=== PATIENT | female | born 1995 | race Caucasian/White ===

== ENCOUNTER → 2018-08-14 20:56 | Outpatient (CLI) | payer MEDICAID, BC, SELFPAY ==
[2018-08-19 14:43] LABS: HPV Reflexed? NOT INDICATED
--- OUTSIDE RECORDS SUMMARY | 2018-10-09 17:08 | XMS RPT_ITS ---
:1995 Author Organization OHIP Care Team Providers Name Role Phone PHYSICIAN, NONE Primary Care Unavailable ДМИТРИЙ TAM CNP Attending Unavailable SELENA BOB, DR. ERIC Attending Unavailable PHYSICIAN, NONE Primary Care Unavailable Jeaneth Walters Attending Unavailable Primay Care Physicia, No Primary Care Unavailable Jeaneth Walters Referring Unavailable AZIZA CABALLERO Attending Unavailable UNKNOWN, PROVIDER Attending Unavailable Cas Gonzalez Attending Unavailable Stk Cnty, Emergency Physicians Attending Unavailable PROBLEMS PROBLEMS DATE TYPE CONDITION / CODE ATTENDING STATUS SOURCE 08/15/2018 Unknown N39.0 - Urinary Selena, Active Mina tract infection, Jeaneth Community site not Hospital specified / Repository N39.0(ICD-10) 08/15/2018 Unknown Z12.4 - Encounter Bertha Walters for screening for [facility] malignant Hospital neoplasm of Repository cervix / Z12.4(ICD-10) 08/04/2018 Unknown Unspecified AZIZA CABALLERO [facility] sprain of right [facility] thumb, initial Repository encounter / S63.601A(ICD-10) 08/04/2018 Unknown Abrasion of right FEDERICOAZIZA SHARMA [facility] thumb, initial [facility] Hospitals encounter / Repository S60.311A(ICD-10) 08/04/2018 Unknown Caught, crush, FEDERICO, [facility] jammed, or [facility] pinched betw Repository moving objects, init / W23.0XXA(ICD-10) 08/04/2018 Active Pain in right FEDERICO, [facility] finger(s) / [facility] Hospitals M79.644(ICD-10) Repository 09/18/2017 Admitting Unknown / Unknown Active [facility] Medical diagnosis UNK(Unknown) [facility] Repository PROCEDURES PROCEDURES No Procedure Records FoundRESULTS RESULTS US BREAST RIGHT Observed: 08/19/2018 Status: F Source: [facility] 8:20 AM FOUNDATION REPOSITORY ORIGINAL FROM: [facility] [address] [place] [id number] PROCEDURE FOR: HARSH HAUSER [address] [place] [address] Home: PID#: [id number] Exam#: [id number] : 1995 Age: 23 TO: JEANETH WALTERS MD [address] [place] [id number] #[id number] LIMITED ULTRASOUND OF RIGHT BREAST: 08/19/2018 CLINICAL: PALPABLE LUMP RIGHT BREAST. No prior exams were available for comparison. Real-time ultrasound of the right breast upper inner quadrant was performed. There is no sonographic abnormality to correspond to a reported palpable lesion. Dense tissue is seen in the area of palpable concern. IMPRESSION: BENIGN No significant abnormality. Clinical correlation advised. There is no sonographic evidence of malignancy. I have personally reviewed the images of the examination and agree with the findings and interpretation. MITA MAGDALENO M.D. cm,da/:08/19/2018 11:16:07 Primer Inserting Machine Adjuster(s): DESIRAE BLAIR RT,[facility], [facility] letter sent: Normal BI-RADS 1&2 Ultrasound BI-RADS: 2 Benign Observed: 08/14/2018 Status: F Source: [place] CULTURE, URINE 3:15 PM [facility] REPOSITORY Urine Culture ORGANISM 1: Mixed Gram Positive Organisms [place] Count 1000-10,000 MIX CULTURE Mixed contaminants. Submit a new specimen if indicated. Performed By: #### M100.0650 #### [facility] Verma. 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 of containers..01 ThinPrep Vial TYPE CODE TESTS RESULT OUT OF RANGE REFERENCE UNITS LAB L7400.0800 . Normal DIAGN Comment Result Comment: NEGATIVE FOR INTRAEPITHELIAL LESION AND MALIGNANCY. LAB L7400.0900 . Normal ADEQ Comment Result Comment: Satisfactory for evaluation. Endocervical and/or squamous metaplastic cells (endocervical component) are present. LAB L7400.1400 . Normal PERFORM Comment Result Comment: Maite Milligan, Dynamite Shooter (ASCP) LAB L7400.2575 . Normal TEST METHOD Comment Result Comment: This liquid based ThinPrep(R) pap test was screened with the use of an image guided system. LAB L7400.2600 . Normal . COMM LAB L7400.2700 . Normal PAPSMR Comment Result Comment: The Pap smear is a screening test designed to aid in the detection of premalignant and malignant conditions of the uterine cervix. It is not a diagnostic procedure and should not be used as the sole means of detecting cervical cancer. Both false-positive and false-negative reports do occur. LAB L7400.2800 . Normal HPV RFLX Comment Result Comment: The HPV DNA reflex criteria were not met with this specimen result therefore, no HPV testing was performed. Performed at: - [facility]Wil[place], [place] [id number] Beauty Culturist: Kaylen Rollins MD, Phone: [phone] Performed By: #### L7400.0350 #### [facility] (refer to report for specific site) refer to report for address and phone number THUMB, MIN 2 VIEWS Observed: 08/04/2018 Status: F Source: [place] 11:02 AM [facility] REPOSITORY Patient Name: HARSH HAUSER STUDY: BN THUMB, MIN 2 VIEWS; 08/04/2018 11:02 am INDICATION: Signs/Symptoms: Right thumb pain after shutting it in car door. COMPARISON: None. ACCESSION NUMBER(S): [id number] ORDERING CLINICIAN: AZIZA CABALLERO FINDINGS: Three views of the right thumb. Normal bone mineralization. No visible acute fractures or dislocations. The joint spaces are maintained. No periosteal reaction or cortical erosive changes. The soft tissues appear unremarkable. IMPRESSION: No visible acute fractures or dislocations. Electronically signed by: JUSTINE ZAIDI MD PROVIDER NOTE - ED Observed: 08/04/2018 Status: COMPLETED Source: [place] [id number] 10:50 AM [facility] REPOSITORY Provider Note - ED v2: Chart Review: HISTORY OF PRESENTING ILLNESS HARSH is a 23 year old Female and was seen by me at 04-Aug-2018 10:27 for a chief complaint of hand pain/injury . Other complaints include: R THUMB CLOSED IN CAR DOOR(1). Triage Information: Most recent Vital Sign Value Date Temp (F): 98 08-04-2018 10:14 Temp (C): 36.6 08-04-2018 10:14 Heart Rate (beats/min): 70 08-04-2018 10:14 Respirations (breaths/min): 16 08-04-2018 10:14 SpO2 (%): 100 08-04-2018 10:14 BP Systolic (mm Hg): 131 08-04-2018 10:14 BP Diastolic (mm Hg): 61 08-04-2018 10:14 PAST MEDICAL HISTORY ATTESTATION: I have reviewed and confirmed nurse's/medic's notes for patient's medications, allergies, medical history, and surgical history ALLERGIES/INTOLERANCES: Allergy Allergen: penicillin Type: Drug Reaction: Hives/Urticaria Allergen: Duricef Type: Drug Reaction: Hives/Urticaria Allergen: Macrobid Type: Drug Reaction: Hives/Urticaria Allergen: Pyridium Type: Drug Reaction: Hives/Urticaria Allergen: sulfa drugs Type: Drug Category Reaction: Hives/Urticaria HEALTH HISTORY: No documented data. OUTPATIENT MEDICATIONS: Home Medications Review Status for Reconciliation: N/A Med Status: N/A No documented data. SIGNIFICANT EVENTS: Past Medical History Description:DENIES Past Surgical History Description:C SECTION VISUAL DISPLAY ASSOCIATE: Is : no(1) Is : no(1) RESULTS/VITAL SIGNS RESULTS: Radiology Results: Impression: No visible acute fractures or dislocations. Xray Finger(s) Min 2 View [Aug 04 2018 11:49AM] Impression: Xray Finger(s) Min 2 View [Aug 04 2018 10:51AM] Impression: Xray Finger(s) Min 2 View [Aug 04 2018 10:50AM] VITAL SIGNS: T PRBP SpO2O2(LPM) %FiO2 Method 04-Aug-2018 10:14:[id number]/61 100 MEDICAL DECISION MAKING/ED COURSE MDM/ED COURSE: HPI: 23-year-old female with no past medical history presenting with thumb pain since just prior to arrival. Patient shut her right thumb in the car door. Now she is complaining of pain on the distal part of the thumb through the nail. No other injuries. She has not taken anything for pain. Patient is right-handed. Tetanus is up to date. PMH: Per history of present illness PSH: MEDICATIONS: Per nurse's note. ROS: A complete 14 point review of systems was done, and was otherwise negative. ALLERGIES: See nurse's note. SOCIAL HISTORY:Tobacco -, etoh -, illicit drugs - FAMILY HISTORY: Noncontributory to current patient condition. VITALS: Per nurse's note PHYSICAL EXAM: Appearance: Alert, oriented , cooperative, in no acute distress. Well nourished & well hydrated. Eyes: PERRLA, Conjunctiva pink with no redness or exudates. No scleral icterus. ENT: Nares patent, mucus membranes moist. Pharynx pink, uvula midline. Neck: Supple, without meningismus. Trachea at midline. No lymphadenopathy. Pulmonary: Clear bilaterally with good chest wall excursion. No rales, rhonchi or wheezing. No accessory muscle use or stridor. Cardiac: Normal S1, S2 without murmur, rub, gallop or extrasystole. No JVD. No cyanosis, clubbing, or edema. Abdomen: Soft, nontender, active bowel sounds. No palpable organomegaly. No rebound or guarding. No CVA tenderness. Genitourinary: Exam deferred. Musculoskeletal: Decreased range of motion of right thumb. Pain over DIP joint. Superficial abrasion over thumb. no edema, or deformity. Pulses full and equal. Neurological: A&Ox3. Motor and sensation are grossly intact. No focal findings identified. Skin: Small abrasion on right thumb. Psychiatric: Appropriate mood and affect. ER Course and Decision-Making : Differential diagnosis includes, but is not limited to: Abrasion, contusion, fracture, dislocation Interpretation of Testing: X-ray right thumb: no acute fracture. Treatments initiated: Motrin. Patient placed in a finger splint. Reevaluation: Patient is feeling a little better with treatment. Plan and Disposition: Patient asked to follow-up with the primary physician in the next 2-3 days. Return if any worsening symptoms or concerns. They understand return precautions and discharge instructions. Patient and family/friend/caregiver available were in agreement with this plan. Impression: 1. Thumb sprain 2. Abrasion CLINICAL IMPRESSION Diagnosis/Annotation: ED Dx Name:Thumb sprain Code:S63.609A Name:Abrasion Code:T14.8XXA Dispostion: discharged Type: home ATTESTATION CRITICAL CARE TIME Is this a critically ill patient: no Electronic Signatures: Aziza Caballero) (Signed 04-Aug-2018 12:13) Authored: Provider Note - ED v2 Last Updated: 04-Aug-2018 12:13 by Aziza Caballero) References: 1. Data Referenced From Triage - ED 08/04/2018 10:14 AM TRIAGE - ED Observed: 08/04/2018 Status: UN Source: [place] 10:14 AM HOSPITALS REPOSITORY Quick Triage: The patient and/or guardian verbally acknowledges placement for services into the following (when Urgent Care Service hours are operating):urgent care services Are You no Are You Currently Breastfeedingno Pain: Pain Rating (0-10): Rest7 Chart Review: CHIEF COMPLAINT HARSH HAUSER is a Female patient with a chief complaint of hand pain/injury. Other Complaints: R THUMB CLOSED IN CAR DOOR Triage Date/Time: 04-Aug-2018 10:14 Pain Rating (0-10): Rest: 7 Vital Signs: Temperature: 98.0F ( 36.6C) Blood Pressure: 131/61 Mean: Heart Rate: 70 Respiratory Rate: 16 Pulse Oximetry: 100% Height: 4 feet 11.00 inches. 149.8 CM Weight: 125.0 pounds. Calculated 56.6 kg. (stated) Calculated BMI (kg/m2): 25.222 Calculated BSA (m2) 1.53 Cough lasting greater than 3 weeks: no Travel outside of [facility]: no VISUAL DISPLAY ASSOCIATE History: control Patient has suicidal thoughts: no Patient has homicidal thoughts: no JESSICA: 4 PAIN Pain Scale Used: VIJAY Past Medical History: Past Medical History Reviewedyes C SECTION: Past Surgical History, Active DENIES: Past Medical History, Active Electronic Signatures: Angelo Medina) (Signed 04-Aug-2018 10:44) Authored: Triage, Past Medical History Last Updated: 04-Aug-2018 10:44 by Angelo Medina) ED DOC Observed: 04/17/2018 Status: UNK Source: [facility] 3:29 PM [facility] REPOSITORY This is a preliminary report only, as the practitioner review and authentication has not occurred. ED DOC Observed: 04/17/2018 Status: UNK Source: [facility] 3:29 PM [facility] REPOSITORY PHYSICIAN ASSESSMENT RECORDS : FlexChartData Event Time: 04/17/2018 12:50 Status: Signed [facility] Harsh Hauser [[id number]] Attending Physician 1995 Chart (V2b) Chart created at 04/17/2018 12:43 by Andres Ruelas Chart closed at 04/17/2018 15:06 Entry in Emergency Department at 04/17/2018 11:38, departure at 04/17/2018 15:29 Patient Name: Harsh Hauser Record Number: [id number] Date: 04/17/2018 12:43 Entered Department at: 04/17/2018 11:38 Patient Seen at: 04/17/2018 12:35 PCP: *None,. Chief Complaint:R sided flank pain, nausea and vomiting today. Hx kidney stones Triage Note reviewed and Initial Vital Signs reviewed. Temperature: 98.4 F (36.9 C). Pulse: 98. Respiratory Rate: 18. Blood-pressure: 94/54. Oxygen Saturation: 99%. History of Present Illness: 22-Year-old presents here to the ED for evaluation of of flank pain. History of nephrolithiasis, remote history of bilateral ureteral stents, most recent CT scan in July 2017 showed bilateral punctate calcifications. Today she woke up feeling fine. She had the abrupt onset of right-sided renal colic with pain in her flank rating down to her right lower quadrant [facility] PATIENT NAME: HARSH HAUSER N [address] [facility] [address] MEDICAL REC #: [id number] [place] [address] EMERGENCY DEPARTMENT CHART EMERGENCY DEPARTMENT PHYSICIAN and groin area. She has had nausea but no vomiting. Denies fevers and chills. No antecedent urinary symptoms. No chest pain or dyspnea. No other acute complaints. Review of Systems. All other systems reviewed and negative.. Past History, Medications, Allergies, Social History and Family History reviewed in nurses note. Medications: Reviewed RN Note. BIOTIN DAILY Allergies: Reviewed RN Note Penicillin(Hives), Duricef(Hives), Sulfa(Hives), Penicillins(*N/A) Penicillin(Hives), Duricef(Hives), Sulfa(Hives), Penicillins(*N/A) Social History: Reviewed RN Note. Family History: Reviewed RN Note Physical Examination: General: Alert; Mildly uncomfortable but otherwise well-appearing HEENT: Normal ENT inspection. Head: Atraumatic. Eyes: PERRL; . Oropharynx / Throat: Moist mucous membranes. Neck: Supple Respiratory: No Resp Distress and Normal Breath Sounds Cardio-Vascular: RRR Abdomen: Non-tender and Soft; Vague non-localizable tenderness in the right lower quadrant without guarding or peritoneal findings. Back: No CVA tenderness Extremity: No edema and Normal Equal pulses Neurological: Alert, Oriented X3 and No Gross Weakness Skin: Warm and Dry Psychological: Mood/Affect Normal URINE , information as of 04/17/2018, 1:00 pm UR HCG QUAL: Neg; UR SPEC GRAV: 1.017 UA COMPLETE, information as of 04/17/2018, 1:00 pm + +---------+---------+---------+---------+-------- + [facility] PATIENT NAME: HARSH HAUSER N [address] [facility] [address] [place] MEDICAL REC #: [id number] [place] [address] EMERGENCY DEPARTMENT CHART EMERGENCY DEPARTMENT PHYSICIAN + +---------+---------+---------+---------+-------- + + +---------+---------+---------+---------+-------- + + +---------+---------+---------+---------+-------- + + +---------+---------+---------+---------+-------- + MUCUS: Trace; SQUAMOUS EPIS: 4 Epi/Hpf; UA BACTERIA: Trace /Hpf Medical Decision Making Patient was seen and examined. IV established. IV Toradol and IV Zofran administered. ED workup performed as detailed above. Urinalysis is unimpressive for infection. No significant hematuria. HCG was negative. I did review her CT scan. She has known bilateral punctate nephrolithiasis. Symptoms are consistent with renal colic. I did treat her as such. I have observed and reassessed her. She is feeling much better. She is comfortable. At this time I do think she is likely passing a punctate ureteral calculus. I do believe she is low risk for discharge home. I do not believe a repeat CT scan is in her best interest given her history of nephrolithiasis, classic symptoms renal colic and I will avoid a CT scan in efforts to minimize radiation exposure. She is comfortable with the plan. Additional Information: Old records reviewed (CT scan abdomen/pelvis from July 2017 showing bilateral renal punctate calcifications). Discussed Results, Diagnosis and Follow-Up with Patient. Prescription given. [facility] PATIENT NAME: HARSH HAUSER N [address] [facility] [address] [place] MEDICAL REC #: [id number] [place] [address] EMERGENCY DEPARTMENT CHART EMERGENCY DEPARTMENT PHYSICIAN Clinical Impression: 1. Acute renal colic, improved MSE completed. I was the primary ED attending.. : Discharge Report Event Time: 04/17/2018 15:03 ===DISCHARGE REPORT=== : GerhardChartData Event Time: 04/17/2018 12:50 : Discharge Report Event Time: 04/17/2018 15:03 Status: Draft Reasons to Return to the ER: You must return to the ER for any new, worsening or changing symptoms, or if you feel more ill or sick in any way. This is the most important thing to remember. Follow-up: The care you received in the ER was given on an emergency basis only, and it is often not possible to completely treat or diagnose a problem in a single ER visit. You must see your follow-up doctor for a recheck within a week unless you receive instructions with a different timeframe for follow-up. Please follow all your discharge instructions. Medications: Unless the ER doctor tells you differently, you should take all your regular medications and any new medications prescribed today. Because it is not possible for the ER doctor to review all of your medication side effects or interactions, you must review possible side effects and interactions with your pharmacist when you get your prescriptions filled. [facility] PATIENT NAME: HARSH HAUSER [address] [facility] [address] [place] MEDICAL REC #: [id number] [place] [address] EMERGENCY DEPARTMENT CHART EMERGENCY DEPARTMENT PHYSICIAN EKG and Radiology Results: A cell tender helper or radiologist will review any EKG or radiology results provided by the ER doctor. We will contact you if the results in the final EKG or radiology reports require a change in treatment. Culture Results: Cultures may have been ordered during your ER visit. We will contact you if the culture results require a change in treatment. Referrals: Most referrals to specialists come from the on-call list You should make your regular doctor aware of any referrals before you schedule the appointment so that they are aware and can make suggestions DIAGNOSIS: Flank pain, resolved, suspect passed kidney stone INSTRUCTIONS: Ibuprofen 400 mg 3 times a day as needed. Phenergan for nausea. Flomax as directed. Holbrook as needed. Kidney stones (called renal calculi) are rock-like pieces of material that can form anywhere in the urinary system, most often in the kidneys. The stones cause pain when they block the flow of urine. This usually happens in the tube (called a ureter) that connects the kidney to the bladder. Most kidney stones are small (less than 1/4 inch) and will pass on their own in several days. You will find them in your urine when you use your strainer. Even larger stones can sometimes be passed by themselves, but if a stone gets stuck it may need to be removed by a specialist called a urologist. Medication for pain and nausea is used to make you comfortable. While you are trying to pass your stone you should try and rest, drink plenty of fluids, and avoid alcohol. If you were given a strainer, you [facility] PATIENT NAME: HARSH HAUSER [address] [facility] [address] [place] MEDICAL REC #: [id number] [place] [address] EMERGENCY DEPARTMENT CHART EMERGENCY DEPARTMENT PHYSICIAN should strain your urine and keep any stone that you collect for your follow-up doctor. The stone will look like a small piece of sand or gravel. Ixwb-[id number] ibuprofen (if you are not ) may be used for pain. You should avoid aspirin unless you are taking this medication for another reason. You must use all of your regular medications plus all the medications that were given to you today UNLESS THE ER DOCTOR GIVES YOU OTHER INSTRUCTIONS, YOU MUST SEE YOUR FOLLOW-UP DOCTOR FOR RECHECK WITHIN 2 TO 3 DAYS YOU MUST RETURN TO THE ER RIGHT AWAY FOR ANY OF THE FOLLOWING:Increasing painFevers or chillsNew or increasing nausea or vomitingDecreasing urine flow MEDICATIONS We have given you these prescriptions that you must fill and start taking: Phenergan 25 mg tablet, count:20, Dose = 1, count:20, 6 hours, count:20 Flomax 0.4 mg capsule, count:5, Dose = 1, count:5, each bedtime, count:5,until kidney stone passes, count:5 Holbrook 5 mg-325 mg tablet, count:10, Dose = 1, count:10, 5 days, count:10, q4-6h, count:10, Number of Refills = 0, count:10 COMMENTS: Patient Satisfaction: Within the first few days after your visit, you will receive an email and/or phone call regarding your visit. We value your feedback, and would appreciate it if you would take the time to complete this short survey. If you receive a call, it will be between 6p and 8p. My signature below indicates that I have received and understand the oral instructions regarding my medical problem. I also acknowledge receipt of this written instruction sheet including a list of major [facility] PATIENT NAME: HARSH HAUSER [address] [facility] [address] [place] MEDICAL REC #: [id number] [place] [address] EMERGENCY DEPARTMENT CHART EMERGENCY DEPARTMENT PHYSICIAN tests and procedures ordered during my visit. I will arrange for follow-up care as indicated by these instructions and referrals. This signed original will be kept in my medical record. Your signature below indicates consent for Case Management to contact [facility] providers in an effort to meet your ongoing healthcare needs. This will allow forcontinuity of care once you leave the Emergency Department. This exchange of informationwill include, but not be limited to, disclosure of your patient information and possible release of records. 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 Hx kidney stones Arrival Date: 04/17/2018 11:38 Triage Date: 04/17/2018 11:50 Mode of Arrival: *Privately Owned Vehicle WC: N Language: Algerian [facility] PATIENT NAME: HARSH HAUSER [address] [facility] [address] MEDICAL REC #: [id number] [place] [address] EMERGENCY DEPARTMENT CHART EMERGENCY DEPARTMENT PHYSICIAN Transport: Ambulatory/Walk In BED A12 In: 04/17/2018 12:09:52 04/17/2018 12:09:52 [facility] A12 (Removed From) Out: 04/17/2018 15:29:15 04/17/2018 15:29:15 ARM PROVIDERS MD Andres Ruelas Provider Contact: 04/17/2018 12:35:57 TLS End: MAGGY GARCIA Provider Contact: 04/17/2018 13:08:43 ARM End: TRIAGE HISTORY ALLERGIES Allergic To: Penicillins - *N/A 04/17/2018 11:51 VDPA CURRENT MEDS Name: BIOTIN DAILY 04/17/2018 13:21 ARM ILLNESS Illness: Kidney stones 04/17/2018 11:51 VDPA PAST SURGERY HIST Surgery: 04/17/2018 11:51 VDPA Surgery: KIDNEY STONES 04/17/2018 11:51 VDPA PAST SOCIAL HIST Social History: Lives alone 04/17/2018 11:51 VDPA Social History: Smoker-None 04/17/2018 11:51 VDPA [facility] PATIENT NAME: HARSH HAUSER Joyce [address] [facility] [address] MEDICAL REC #: [id number] [place] [address] EMERGENCY DEPARTMENT CHART EMERGENCY DEPARTMENT PHYSICIAN Social History: Recreational Drugs - None 04/17/2018 11:51 VDPA Social History: Alcohol - Occasional- 04/17/2018 11:51 VDPA Social History: Have you traveled in the past month? Where DENIES 04/17/2018 11:51 VDPA NURSING ASSESSMENT ASSESSMENT NOTES 04/17/2018 13:23 PT C/O RIGHT LOWER ABDOMINAL PAIN AND RIGHT FLANK PAIN STARTING THIS MORNING. HX OF FREQUENT KIDNEY STONES. THE PT IS Aandamp;OX3. RESPIRATIONS EVEN AND EASY. SKIN WARM AND DRY. 04/17/2018 13:24 ARM TREATMENT 04/17/2018 13:22 Hourly Rounding - Rounding 04/17/2018 13:23 ARM Elimination/Toileting N Pain 8 Position Comfortable Y Safe Environment Y Fall Risk Change N 04/17/2018 13:22 Staff/ Patient Interaction - Introduced self and assessed patients needs. 04/17/2018 13:23 ARM 04/17/2018 13:22 Staff/ Patient Interaction - Side rails up X2 and call light placed within reach. 04/17/2018 13:23 ARM 04/17/2018 13:22 Primary DOC Guide - A. Patient History 04/17/2018 13:23 ARM Primary History Source Patient Buddy Exposure - Been exposed to or in contact with any bird or chicken in the last 30 days No [facility] PATIENT NAME: HARSH HAUSER N [address] [facility] 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 Fall Risk Assessment (Age andlt;65) 04/17/2018 13:23 ARM Fall Risk Score 1-2 Points = Low Risk. 3-4 Points = Moderate Risk. 5 or more points = High Risk. 0 Fall Score Greater andgt;= 3? No 04/17/2018 13:23 Primary DOC Guide - D. Psychosocial Assessment 04/17/2018 13:23 ARM Over the Last 2 weeks, how often have you had little interest or pleasure in doing things (0) Not at All Is Psychosocial Assessment Score 3 or more? If score is 3 or more please consult ED Navigator! No Total Psychosocial Assessment Score 0 Over the last 2 weeks, how often have you been feeling down, depressed or hopeless (0) Not at All 04/17/2018 13:23 Primary DOC Guide - E. Family Violence Assessment 04/17/2018 13:23 ARM Within the past year, has anyone ever pushed, shoved, slapped, choked, hit, punched or kicked you: No Within the past year, has anyone ever pressured or forced you to have sexual activities when you did not want to: No Is there a partner from a previous or current relationship that is making you feel unsafe now: No 04/17/2018 14:12 Hourly Rounding - Rounding 04/17/2018 14:13 ARM Elimination/Toileting N Pain 4 Position Comfortable Y Safe Environment Y Assessment Note PT STATES PAIN IS IMPROVED. RESTING QUIETLY IN BED. Fall Risk Change N 04/17/2018 14:40 Hourly Rounding - Rounding 04/17/2018 [facility] PATIENT NAME: HARSH HAUSER [address] [facility] [address] MEDICAL REC #: [id number] [place] [address] EMERGENCY DEPARTMENT CHART EMERGENCY DEPARTMENT PHYSICIAN 14:40 ARM Elimination/Toileting N Pain 0 Position Comfortable Y Safe Environment Y Fall Risk Change N 04/17/2018 15:22 Discharge - Ambulated with steady gait home 04/17/2018 15:22 ARM 04/17/2018 15:22 Discharge - Discharge 04/17/2018 15:22 ARM 04/17/2018 15:22 Discharge - Instructions reviewed with pt and verbalizes understanding 04/17/2018 15:22 ARM 04/17/2018 15:22 Discharge - Printed discharge instructions given to pt. 04/17/2018 15:22 ARM 04/17/2018 15:22 Education - Discharge Instructions reviewed and patient voices understanding. 04/17/2018 15:22 ARM 04/17/2018 15:22 Education - Disease process discussed. 04/17/2018 15:22 ARM 04/17/2018 15:22 Education - Pain Management Re-Assessed 04/17/2018 15:22 ARM 04/17/2018 15:22 Education - Purpose/Use Medication discussed with patient and family. 04/17/2018 15:22 ARM MEDICATIONS IV IV Fluid: B 04/17/2018 13:21 04/17/2018 13:22 ARM Line #: 1 Rate: ml/hr Location: antecubital fossa right Ndl Gauge: 20 # Attempts: 1 Notes: IV FLUSHES EASILY. NO REDNESS OR EDEMA AT SITE. [facility] PATIENT NAME: HARSH HAUSER [address] [facility] [address] MEDICAL REC #: [id number] [place] [address] EMERGENCY DEPARTMENT CHART EMERGENCY DEPARTMENT PHYSICIAN IV Fluid: S 04/17/2018 13:22 04/17/2018 14:20 ARM Line #: 1 Fluid: 0.9% NS 1000cc bag Rate: ml/hr Location: antecubital fossa right Ndl Gauge: 20 # Attempts: 1 Amt: 1000 IV Fluid: D 04/17/2018 14:20 04/17/2018 14:20 ARM Line #: 1 Fluid: 0.9% NS 1000cc bag Rate: ml/hr Location: antecubital fossa right Ndl Gauge: 20 # Attempts: 1 IV Fluid: E 04/17/2018 15:21 04/17/2018 15:21 ARM Line #: 1 Rate: ml/hr Location: antecubital fossa right Ndl Gauge: 20 # Attempts: 1 Notes: IV REMOVED TIP INTACT. NO REDNESS OR EDEMA AT SITE. BLEEDING CONTROLLED. DRESSING APPLLIED. I AND O VITALS VS-ROUTINE Time: 04/17/2018 11:50 B/P: 94/54 - Left Upper Arm - Sitting - Machine Pulse: 98 - Monitor Resp: 18 Sa02: 99 Room Air Temp: 98.40 F - Oral 04/17/2018 11:51 VDPA VS-Pain Time: 04/17/2018 11:50 Pain Level: 9 04/17/2018 11:51 VDPA VS-GCS Time: 04/17/2018 11:50 Visual: 4 Verbal: 5 Motor: 6 GCS Total: 15 04/17/2018 11:51 VDPA VS-HT/WT Time: 04/17/2018 11:50 Ht: 147.3 cm Stated Weight: 56.7 kg Stated 04/17/2018 11:51 VDPA VS-Visual Time: 04/17/2018 11:50 04/17/2018 11:51 VDPA VS-FHT Time: 04/17/2018 11:50 04/17/2018 11:51 VDPA VS-Notes Time: 04/17/2018 11:50 map 67 04/17/2018 11:51 VDPA VS-ROUTINE Time: 04/17/2018 14:39 B/P: 93/51 - Right Upper Arm - Lying - Machine Pulse: [facility] PATIENT NAME: HARSH HAUSER N [address] [facility] [address] MEDICAL REC #: [id number] [place] [address] EMERGENCY DEPARTMENT CHART EMERGENCY DEPARTMENT PHYSICIAN 84 - Monitor Resp: 16 Sa02: 99 Room Air 04/17/2018 14:40 ARM VS-Pain Time: 04/17/2018 14:39 Pain Level: 0 04/17/2018 14:40 ARM VS-GCS Time: 04/17/2018 14:39 Visual: 4 Verbal: 5 Motor: 6 GCS Total: 15 04/17/2018 14:40 ARM VS-HT/WT Time: 04/17/2018 14:39 04/17/2018 14:40 ARM VS-Visual Time: 04/17/2018 14:39 04/17/2018 14:40 ARM VS-FHT Time: 04/17/2018 14:39 04/17/2018 14:40 ARM VS-Notes Time: 04/17/2018 14:39 MAP 67 04/17/2018 14:40 ARM ORDERS Discharge patient 04/17/2018 15:06 N/A Ordered: 04/17/2018 15:02 By . Other Reviewed: 04/17/2018 15:06 By . Other (urine) 04/17/2018 13:31 N/A Ordered: 04/17/2018 12:42 By Andres Ruelas Completed Time: 04/17/2018 13:31 By Andres Ruelas Noted Time: 04/17/2018 13:21 ARM Results Time: 04/17/2018 13:31 UA ccms (cath if unable to void in 30 mins) 04/17/2018 13:41 N/A Ordered: 04/17/2018 12:42 By Andres Ruelas Completed Time: 04/17/2018 13:41 By Andres Ruelas Noted Time: 04/17/2018 13:21 ARM Question: Lab Urine Specimen Type Answer: Clean Catch Question: Also Culture, if indicated by UA results (Y or N) Answer: NO Results Time: 04/17/2018 13:41 IV NS bolus 1L over 30 min 04/17/2018 13:21 N/A Ordered: 04/17/2018 12:42 By Andres Ruelas Completed Time: 04/17/2018 13:21 By Andres Ruelas Noted Time: 04/17/2018 13:08 ARM [facility] PATIENT NAME: HARSH HAUSER Joyce [address] [facility] [address] MEDICAL REC #: [id number] [place] [address] EMERGENCY DEPARTMENT CHART EMERGENCY DEPARTMENT PHYSICIAN Toradol (IV)*(30mg/ml) DOSE: 15 mg IV 04/17/2018 13:21 N/A Ordered: 04/17/2018 12:42 By Andres Ruelas Completed Time: 04/17/2018 13:20 By Andres Ruelas Noted Time: 04/17/2018 13:08 ARM Zofran (IV)*(2mg/ml) DOSE: 4 mg IV 04/17/2018 13:21 N/A Ordered: 04/17/2018 12:42 By Andres Ruelas Completed Time: 04/17/2018 13:20 By Andres Ruelas Noted Time: 04/17/2018 13:08 ARM DISCHARGE Diagnosis: Flank pain, resolved, suspect passed kidney stone 04/17/2018 15:03 Disposition: Time: 04/17/2018 15:02 Discharge Time: 04/17/2018 15:29 Type: Discharge Condition: Stable for admission/discharge/transfer after emergency evaluation/treatment Category: *NOT APPLICABLE Referral: 04/17/2018 15:03 Admit Physician: . Other PRESCRIPTIONS Phenergan 25 mg tablet 04/17/2018 15:03 SI 6 hours nausea Dispense: 20 / Refills: Flomax 0.4 mg capsule 04/17/2018 15:03 SI each bedtime Additional Instructions: until kidney stone passes Dispense: 5 / Refills: Holbrook 5 mg-325 mg tablet 04/17/2018 15:03 SI q4-6h pain for 5 days Dispense: 10 / Refills: CHARGES [facility] PATIENT NAME: HARSH HAUSER N [address] [facility] [address] MEDICAL REC #: [id number] [place] [address] EMERGENCY DEPARTMENT CHART EMERGENCY DEPARTMENT PHYSICIAN 0.9% NS 1000cc bag QTY @ 1 04/17/2018 13:22 ARM Auto Generated Charge SIGNATURE Andres [facility] PATIENT NAME: HARSH HAUSER N [address] [facility] [address] MEDICAL REC #: [id number] [place] [address] EMERGENCY DEPARTMENT CHART EMERGENCY DEPARTMENT PHYSICIAN URINE Collected: 04/17/2018 Status: F Source: [facility] 1:00 PM [facility] REPOSITORY Order Comment: [place]: TYPE CODE TESTS RESULT OUT OF RANGE REFERENCE UNITS LAB L600.04514 NEGATIVE Normal UR NEGATIVE HCG QUAL LAB L600.23169 1.005-1.030 Normal UR 1.017 SPEC GRAV Result Comment: 0URINE HCG RESULT MAY BE FALSE NEGATIVE DUE TO LOW SPECIFIC GRAVITY. SUGGEST SERUM TEST. Performed By: #### L600.11471 #### [facility] [address] [place] [address] UA COMPLETE Collected: 04/17/2018 Status: F Source: [facility] 1:00 PM [facility] REPOSITORY Order Comment: [place]: M TYPE CODE TESTS RESULT OUT OF REFERENCE UNITS RANGE LAB L600.04005 UA COLOR Normal Yellow LAB L600.17173 CLEAR UA Normal APPEARANCE Hazy LAB L600.73310 1.005-1.030 UA SPEC Normal GRAV 1.017 LAB L600.27328 UA PH Normal 5.0 LAB L600.42687 UA GLUCOSE Normal NEG LAB L600.18232 UA KETONE Normal NEGATIVE LAB L600.55988 UA Normal BILIRUBIN NEGATIVE LAB L600.00556 UA Normal UROBILINOGEN NEG LAB L600.53965 NEGATIVE UA PROTEIN Normal NEGATIVE LAB L600.88300 NEGATIVE UA BLOOD Normal SMALL LAB L600.22874 NEGATIVE UA NITRITE Normal NEGATIVE LAB L600.62097 NEGATIVE UA LK Normal ESTERASE 25 LAB L600.82588 0-5 WBC/HPF UA WBC Normal 3 LAB L600.43323 0-3 RBC/HPF UA RBC Normal 2 LAB L600.22509 0-5 EPI/HPF SQUAMOUS Normal EPIS 4 LAB L600.73764 NONE /HPF UA BACTERIA Normal TRACE LAB L600.94444 MUCUS Normal TRACE Performed By: #### L600.41121 #### [facility] [address] [phone] ED DOC Observed: 03/18/2018 Status: UNK Source: [facility] 3:03 AM [facility] REPOSITORY This is a preliminary report only, as the practitioner review and authentication has not occurred. ED DOC Observed: 03/18/2018 Status: UNK Source: [facility] 3:03 AM [facility] REPOSITORY PHYSICIAN ASSESSMENT RECORDS : FlexChartData Event Time: 03/18/2018 00:20 Status: Signed [facility] Harsh Hauser [[id number]] Attending Physician 1995 Chart (V2b) Chart created at 03/18/2018 00:15 by Jany Reyez Chart closed at 03/18/2018 03:52 Entry in Emergency Department at 03/17/2018 21:49, departure at 03/18/2018 03:03 Patient Name: Harsh Hauser Record Number: [id number] Date: 03/18/2018 00:15 Entered Department at: 03/17/2018 21:49 Patient Seen at: 03/17/2018 23:56 Historian: Patient PCP: *None,. Chief Complaint:Abdominal Pain Temperature: 98.2 F (36.8 C). Pulse: 75. Respiratory Rate: 18. Blood-pressure: 102/57. Oxygen Saturation: 98%. History of Present Illness: Patient is a 22-year-old female presenting with pelvic pain. She states that she has a history of chronic back pain associated with kidney stones. She comes in today stating that yesterday she noticed pain in the suprapubic region. It has been constant since. She has associated dysuria and has noticed her urine has been cloudy. She states she has some chronic vaginal discharge and has not changed. She denies any vaginal bleeding. She has an IUD in place and is unsure of her last period. She has felt nauseous but has [facility] PATIENT NAME: HARSH HAUSER [address] [facility] [address] MEDICAL REC #: [id number] [place] [address] EMERGENCY DEPARTMENT CHART EMERGENCY DEPARTMENT PHYSICIAN not had any vomiting. She denies any diarrhea or constipation. Review of Systems. All other systems reviewed and negative.. Past History, Medications, Allergies, Social History and Family History reviewed in nurses note. Medications: Reviewed RN Note. None, PER PT 03/17/18, None, PER PT 03/17/18 Allergies: Reviewed RN Note Penicillin(Hives), Duricef(Hives), Sulfa(Hives), Penicillins(*N/A) Penicillin(Hives), Duricef(Hives), Sulfa(Hives), Penicillins(*N/A) Social History: Reviewed RN Note. Family History: Reviewed RN Note Physical Examination: General: Alert and Well Developed HEENT: Normal ENT inspection. Eyes: Lids Normal; . Neck: No Meningismus and Supple Respiratory: No Resp Distress and Normal Breath Sounds Cardio-Vascular: No rub and RRR Abdomen: Soft; tender without guarding or rebound suprapubic and left pelvic Extremity: No edema Neurological: Alert, Oriented X3 and No Gross Weakness Skin: No rash, No Petechiae, Warm and Dry Psychological: Mood/Affect Normal UA COMPLETE, information as of 03/18/2018, 0:05 am + +---------+---------+---------+---------+-------- + + +---------+---------+---------+---------+-------- + [facility] PATIENT NAME: HARSH HAUSER N [address] [facility] [address] MEDICAL REC #: [id number] [place] [address] EMERGENCY DEPARTMENT CHART EMERGENCY DEPARTMENT PHYSICIAN + +---------+---------+---------+---------+-------- + + +---------+---------+---------+---------+-------- + + +---------+---------+---------+---------+-------- + MUCUS: Trace; SQUAMOUS EPIS: 6 Epi/Hpf; UA BACTERIA: 1+ /Hpf URINE , information as of 03/18/2018, 0:05 am UR HCG QUAL: Neg; UR SPEC GRAV: 1.010 Imaging Study Obtained: TRANSVAGINAL Imaging Study Obtained: US TRANSVAGINAL, Status:Signed Report Available US TRANSVAGINAL Ordering Physician: Jany Reyez MD 03/18/2018 12:04 AM ULTRASOUND PELVIS TRANSVAGINAL IMAGING: Clinical Statement: Intermittent cramping for weeks; IUD Comparison: None FINDINGS: Transvaginal pelvic ultrasound was acquired. The uterus measures 9.0 x 2.9 x 4.3 cm and appears heterogeneous and an intrauterine device is present within the uterus at the mid uterine segment. No myometrial mass is shown. The endometrium measures 3 mm [facility] PATIENT NAME: HARSH HAUSER N [address] [facility] [address] MEDICAL REC #: [id number] [place] [address] EMERGENCY DEPARTMENT CHART EMERGENCY DEPARTMENT PHYSICIAN on transvaginal images. There is a small amount of fluid seen within the endocervical canal. The right and left ovaries measure 3.5 x 1.7 x 2.6 cm and 2.4 x 2.1 x 2.1 cm respectively. Doppler flow is present to both ovaries. No adnexal mass. There is free fluid seen within the cul-de-sac. IMPRESSION: No acute abnormalities. Nonspecific heterogeneous uterus. A copy of this report was faxed at the time of dictation. 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 IUD is in place. Urinalysis shows small amount of blood as well as some bacteria. I sent this for culture but given her suprapubic pain and dysuria, I will empirically treat her with Keflex. Shes instructed on Tylenol or Motrin as needed for pain. She is encouraged to follow with her VISUAL DISPLAY ASSOCIATE. Return if worsening. She is comfortable with this plan. Additional Information: Discussed Results, Diagnosis and Follow-Up with Patient. Clinical Impression: [facility] PATIENT NAME: HARSH HAUSER [address] MEDICAL REC #: [id number] [place] [address] EMERGENCY DEPARTMENT CHART EMERGENCY DEPARTMENT PHYSICIAN 1. Acute UTI Disposition: Discharged *Home. Condition: Good MSE completed. I was the primary ED attending.. : Discharge Report Event Time: 03/18/2018 02:14 ===DISCHARGE REPORT=== : FlexChartData Event Time: 03/18/2018 00:20 : Discharge Report Event Time: 03/18/2018 02:14 Status: Draft Reasons to Return to the ER: You must return to the ER for any new, worsening or changing symptoms, or if you feel more ill or sick in any way. This is the most important thing to remember. Follow-up: The care you received in the ER was given on an emergency basis only, and it is often not possible to completely treat or diagnose a problem in a single ER visit. You must see your follow-up doctor for a recheck within a week unless you receive instructions with a different timeframe for follow-up. Please follow all your discharge instructions. Medications: Unless the ER doctor tells you differently, you should take all your regular medications and any new medications prescribed today. Because it is not possible for the ER doctor to review all of your medication side effects or interactions, you must review possible side effects and interactions with your [facility] PATIENT NAME: HARSH HAUSER [address] [place] MEDICAL REC #: [id number] [place] [address] EMERGENCY DEPARTMENT CHART EMERGENCY DEPARTMENT PHYSICIAN pharmacist when you get your prescriptions filled. EKG and Radiology Results: A cell tender helper or radiologist will review any EKG or radiology results provided by the ER doctor. We will contact you if the results in the final EKG or radiology reports require a change in treatment. Culture Results: Cultures may have been ordered during your ER visit. We will contact you if the culture results require a change in treatment. Referrals: Most referrals to specialists come from the on-call list You should make your regular doctor aware of any referrals before you schedule the appointment so that they are aware and can make suggestions DIAGNOSIS: Acute UTI A urinary tract infection (or UTI) is the medical name for an infection of the bladder or kidney. Both of these infections are caused by bacteria. Bladder infections (also called cystitis) may cause pain with urination, blood in the urine, increased frequency of urination or increased urge to urinate. They may also cause low grade fevers (under 102.5 degrees) or pain and spasm of the bladder. Kidney infections (also called pyelonephritis) may cause severe pain in the flanks or back, as well as nausea, vomiting, muscle aches and high fevers. It is also not uncommon to have an infection that is a combination of bladder and kidney infections, with some symptoms of both. Antibiotics are used to treat urinary infections. The doctor may also use medications to help with the pain and nausea. While you are sick you should try and rest, drink plenty of fluids, and avoid alcohol. Zccp-rxk-hkvkkas ibuprofen (if you are not ) or acetaminophen may be used for aches, pains and [facility] PATIENT NAME: HARSH HAUSER [facility] [address] MEDICAL REC #: [id number] [place] [address] EMERGENCY DEPARTMENT CHART EMERGENCY DEPARTMENT PHYSICIAN fever. You should avoid aspirin unless you are taking this medication for another reason. You must use all of your regular medications plus all the medications that were given to you today. UNLESS THE ER DOCTOR GIVES YOU OTHER INSTRUCTIONS, YOU MUST SEE YOUR FOLLOW-UP DOCTOR FOR RECHECK WITHIN 2 TO 3 DAYS YOU MUST RETURN TO THE ER RIGHT AWAY FOR ANY OF THE FOLLOWING:New or increasing fever or chillsNew or increasing flank or abdominal painNew or increasing nausea or vomitingNew or increasing weakness, dizziness or confusionNew or increasing blood in the urine MEDICATIONS We have given you these prescriptions that you must fill and start taking: Keflex 500 mg Tab, count:14, Dose = 1, count:14, 2 times a day, count:14 COMMENTS: Patient Satisfaction: Within the first few days after your visit, you will receive an email and/or phone call regarding your visit. We value your feedback, and would appreciate it if you would take the time to complete this short survey. If you receive a call, it will be between 6p and 8p. My signature below indicates that I have received and understand the oral instructions regarding my medical problem. I also acknowledge receipt of this written instruction sheet including a list of major tests and procedures ordered during my visit. I will arrange for follow-up care as indicated by these instructions and referrals. This signed original will be kept in my medical record. Your signature below indicates consent for Case Management to contact [facility] in an effort to meet your ongoing healthcare needs. This will [facility] PATIENT NAME: HARSH HAUSER [address] [facility] [address] MEDICAL REC #: [id number] [place] [address] EMERGENCY DEPARTMENT CHART EMERGENCY DEPARTMENT PHYSICIAN allow forcontinuity of care once you leave the Emergency Department. This exchange of informationwill include, but not be limited to, disclosure of your patient information and possible release of records. 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 PAIN AND TENDERNESS. RADIATES AROUND TO BACK.ALSO STATED VOMITING. PT STATED HX OF KIDNEY STONES. Arrival Date: 03/17/2018 21:49 Triage Date: 03/17/2018 22:10 Mode of Arrival: Walk-In Transfer From: * Home WC: N Language: Algerian BED A03 In: 03/17/2018 23:54:40 03/17/2018 23:54:40 RCB [facility] PATIENT NAME: HARSH HAUSER [address] [facility] [address] MEDICAL REC #: [id number] [place] [address] EMERGENCY DEPARTMENT CHART EMERGENCY DEPARTMENT PHYSICIAN A03 (Removed From) Out: 03/18/2018 03:03:22 03/18/2018 03:03:22 [facility] PROVIDERS MD Jany Reyez Provider Contact: 03/17/2018 23:56:20 STEVEN End: RNCCU EMMANUEL MANZANO Provider Contact: 03/18/2018 01:33:15 MJ End: TRIAGE HISTORY ALLERGIES Allergic To: Penicillins - *N/A 03/17/2018 22:15 RSS CURRENT MEDS Name: None 03/17/2018 22:15 RSS Name: PER PT 03/17/18 03/17/2018 22:15 RSS ILLNESS Illness: Kidney stones 03/17/2018 22:15 RSS PAST SURGERY HIST Surgery: 03/17/2018 22:15 RSS Surgery: KIDNEY STONES 03/17/2018 22:15 RSS PAST SOCIAL HIST Social History: Lives alone 03/17/2018 22:15 RSS Social History: Smoker-None 03/17/2018 22:15 RSS Social History: Recreational Drugs - None 03/17/2018 22:15 RSS Social History: Alcohol - Occasional- 03/17/2018 22:15 RSS [facility] PATIENT NAME: HARSH HAUSER N [address] [facility] [address] MEDICAL REC #: [id number] [place] [address] EMERGENCY DEPARTMENT CHART EMERGENCY DEPARTMENT PHYSICIAN Social History: Have you traveled in the past month? Where DENIES 03/17/2018 22:15 RSS NURSING ASSESSMENT ASSESSMENT NOTES 03/18/2018 01:39 patient a/o x4, skin warm and dry with good turgor, resp easy, lower abdominal pain migrated to flank pain with hx of kidney sones 03/18/2018 01:40 [facility] 03/24/2018 10:32 Pharmacy called in the patiently lists allergies to them for cephalosporins and Bactrim and penicillin which is different than the ER chart. I did have them change the prescription to Macrobid 100 mg twice daily for 7 days. 03/24/2018 10:33 MR TREATMENT 03/18/2018 01:40 Primary DOC Guide - A. 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 Fall Risk Assessment (Age andlt;65) 03/18/2018 01:42 MJHA History of Falling in last 3 months? No (0) Confusion or Disorientation? No (0) Intoxicated or Sedated? No (0) Impaired Gait? No (0) Mobility Assist Device Used? No (0) Altered Elimination? No (0) [facility] PATIENT NAME: HARSH HAUSER N [address] [facility] [address] [place] MEDICAL REC #: [id number] [place] [address] EMERGENCY DEPARTMENT CHART EMERGENCY DEPARTMENT PHYSICIAN Fall Risk Score 1-2 Points = Low Risk. 3-4 Points = Moderate Risk. 5 or more points = High Risk. 0 Fall Score Greater andgt;= 3? No 03/18/2018 01:41 Primary DOC Guide - D. Psychosocial Assessment 03/18/2018 01:42 MJHA Over the Last 2 weeks, how often have you had little interest or pleasure in doing things (0) Not at All Is Psychosocial Assessment Score 3 or more? If score is 3 or more please consult ED Navigator! No Total Psychosocial Assessment Score 0 Over the last 2 weeks, how often have you been feeling down, depressed or hopeless (0) Not at All 03/18/2018 01:42 Primary DOC Guide - E. Family Violence Assessment 03/18/2018 01:42 MJHA Within the past year, has anyone ever pushed, shoved, slapped, choked, hit, punched or kicked you: No Within the past year, has anyone ever pressured or forced you to have sexual activities when you did not want to: No Do you feel safe and well cared for: Yes Is there a partner from a previous or current relationship that is making you feel unsafe now: No Family Violence Clinical Observation All Negative Except 03/18/2018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
== END ==
PROVIDERS: Referring Provider Obstetrics & Gynecology; Visit Provider Obstetrics & Gynecology
DX: N39.0 Urinary tract infection, site not specified (principal); Z12.4 Encounter for screening for malignant neoplasm of cervix
CPT/HCPCS: 87086; 87088; 88175; G0145